=== PATIENT | male | born 1955 | race Caucasian/White ===

== ENCOUNTER 2024-01-22 23:33 | Emergency (ER) | payer MEDICARE, OTHER ==
[2024-01-23 00:04] LABS: BASOPHILS % (AUTO) 0.3 %; EOSINOPHILS # (AUTO) 0.1 10^3/uL (0.0-0.7); EOSINOPHILS % (AUTO) 0.8 %; HCT - HEMATOCRIT 45.1 % (42.0-52.0); HGB - HEMOGLOBIN 15.1 g/dL (14.0-18.0); LYMPHOCYTES # (AUTO) 1.9 10^3/uL (1.5-3.5); LYMPHOCYTES % (AUTO) 14.6 %; MEAN CORPUSCULAR HGB CONC 33.5 g/dL (32.0-36.0); MEAN CORPUSCULAR VOLUME 89.7 fL (80.0-94.0); MEAN PLATELET VOLUME 9.9 fL (7.4-11.4); MONOCYTES # (AUTO) 0.8 10^3/uL (0.0-1.0); MONOCYTES % (AUTO) 6.5 %; NEUTROPHILS # (AUTO) 9.8 10^3/uL (1.5-6.6); NEUTROPHILS % (AUTO) 77.5 %; PLT - PLATELET COUNT 247 10^3/uL (130-450); RED BLOOD COUNT 5.03 10^6/uL (4.70-6.10); RED CELL DISTRIBUTION WIDTH 12.7 % (12.0-15.0); WHITE BLOOD COUNT 12.7 x10^3/uL (4.8-10.8)
[2024-01-23 00:08] LABS: BILIRUBIN,URINE NEGATIVE (NEGATIVE); GLUCOSE, URINE (UA) NEGATIVE (NEGATIVE); KETONES,URINE (UA) TRACE mg/dL (NEGATIVE); LEUKOCYTE ESTERASE, URINE NEGATIVE (NEGATIVE); NITRITE,URINE NEGATIVE (NEGATIVE); OCCULT BLOOD,URINE MODERATE (NEGATIVE); PROTEIN,URINE NEGATIVE (NEGATIVE); UROBILINOGEN,URINE 0.2 (NORMAL) E.U./dL (NORMAL)
[2024-01-23 00:10] LABS: CLARITY,URINE CLEAR (CLEAR)
[2024-01-23 00:14] LABS: ALBUMIN 4.5 g/dL (3.2-5.5); ALBUMIN/GLOBULIN RATIO 1.7 (1.0-2.2); BILIRUBIN,TOTAL 0.7 mg/dL (0.2-1.0); CALCIUM 9.6 mg/dL (8.5-10.3); CREATININE 1.3 mg/dL (0.6-1.3); POTASSIUM 4.3 mmol/L (3.5-4.5); TOTAL PROTEIN 7.2 g/dL (6.4-8.9)
[2024-01-23 00:15] LABS: BACTERIA,URINE Rare /HPF (None Seen); MUCUS,URINE Few Strands; RBC,URINE TNTC /HPF (0-5); SQUAMOUS EPITHELIAL CELL,UR RARE Squamous (<= Few); WBC,URINE 0-3 /HPF (0-3)
--- NOTE | 2024-01-23 00:25 | ED Physician Documentation ---
PD HPI ABD PAIN - Stated complaint Stated Complaint: L SIDE ABD/BACK PX - Chief complaint Chief Complaint: Abd Pain - History obtained from History obtained from: Patient - Additional information Additional information: HPI from patient. Patient complains of left lower quadrant pain that radiates to his left flank. Onset approximately 5 PM while at home at rest. The pain has been waxing waning since the onset without inciting event nor exacerbating factors. Patient took Tylenol earlier this evening with significant improvement only to have the pain reoccurred at approximately 10 PM tonight and thus he presents the emergency department for evaluation. He has never had this type of pain before. He denies nausea, vomiting. Denies gross hematuria, denies dysuria. Review of Systems Constitutional: denies: Fever, Chills, Sweats Cardiac: reports: Reviewed and negative Respiratory: reports: Reviewed and negative GI: reports: Abdominal Pain. denies: Nausea, Vomiting : denies: Dysuria, Hematuria Musculoskeletal: denies: Back pain PD PAST MEDICAL HISTORY - Past Medical History Past Medical History: Yes - Past Surgical History Past Surgical History: Yes - Present Medications Home Medications: Ambulatory Orders Medication Instructions Recorded Confirmed HYDROcod/ACETAM 5/325 [Swoope 5/325] 1 - 2 tablet PO Q6H PRN #14 tablet 01/23/24 Ondansetron Odt [Zofran Odt] 4 mg TL Q6H PRN #14 tablet 01/23/24 Tamsulosin [Flomax] 0.4 mg PO DAILY #6 cap 01/23/24 - Allergies Allergies/Adverse Reactions: Allergies Allergy/AdvReac Type Severity Reaction Status Date / Time Sulfa (Sulfonamide Allergy Rash Verified 01/22/24 23:43 Antibiotics) - Social History Does the pt smoke?: No Smoking Status: Never smoker PD ED PE NORMAL - Vitals Vital signs reviewed: Yes - General General: Alert and oriented X 3, No acute distress, Well developed/nourished - Cardiac Cardiac: RRR, No murmur - Respiratory Respiratory: No respiratory distress, Clear bilaterally - Abdomen Abdomen: Soft, Non tender - Back Back: No CVA TTP Results - Vitals Vitals: Vital Signs - 24 hr 01/22/24 01/23/24 23:40 02:38 Temperature 36.5 C 36 C L Heart Rate 61 64 Respiratory 18 16 Rate Blood Pressure 135/73 H 131/82 H O2 Saturation 100 99 Oxygen O2 Source Room air - Labs Labs: Laboratory Tests 01/22/24 01/22/24 01/23/24 23:54 23:54 00:05 WBC 12.7 H RBC 5.03 Hgb 15.1 Hct 45.1 MCV 89.7 MCH 30.0 MCHC 33.5 RDW 12.7 Plt Count 247 MPV 9.9 Neut # (Auto) 9.8 H Lymph # (Auto) 1.9 Quay # (Auto) 0.8 Eos # (Auto) 0.1 Baso # (Auto) 0.0 Absolute Nucleated RBC 0.00 Nucleated RBC % 0.0 Sodium 137 Potassium 4.3 Chloride 103 Carbon Dioxide 26 Anion Gap 8.0 BUN 17 Creatinine 1.3 Estimated GFR (MDRD) 55 L Glucose 112 H Calcium 9.6 Total Bilirubin 0.7 AST 25 ALT 19 Alkaline Phosphatase 48 Total Protein 7.2 Albumin 4.5 Globulin 2.7 Albumin/Globulin Ratio 1.7 Lipase 38 Urine Color YELLOW Urine Clarity CLEAR Urine pH 6.0 Ur Specific Reading >=1.030 H Urine Protein NEGATIVE Urine Glucose (UA) NEGATIVE Urine Ketones TRACE Urine Occult Blood MODERATE H Urine Nitrite NEGATIVE Urine Bilirubin NEGATIVE Urine Urobilinogen 0.2 (NORMAL) Ur Leukocyte Esterase NEGATIVE Urine RBC TNTC H Urine WBC 0-3 Ur Squamous Epith Cells RARE Squamous Urine Bacteria Rare Urine Mucus Few Strands Ur Microscopic Review INDICATED Urine Culture Comments NOT INDICATED - Rads (name of study) CT A/P Relevant Findings:: Prelim report reviewed, See rad report PD Medical Decision Making - ED course Complexity details: reviewed results, re-evaluated patient, considered differential, d/w patient ED course: Mild leukocytosis (12.7 WBC) on otherwise unremarkable CBC. ER abdominal panel is normal with noncontributory exceptions of GFR 55, glucose 112. Urinalysis has TNTC RBC/hpf but no white blood cells, nitrites, and only rare bacteria. CT A/P reveals moderate left-sided hydronephrosis and perinephric stranding due to obstructing 3mm calculus in UVJ. While the radiologist interpretation of this study includes findings that raise suspicion for concomitant infection (infectious uropathy, cystitis), the results of the urinalysis do not support/evidence infection. Patient declines analgesia both on initial evaluation as well as reevaluation prior to discharge. Results discussed with patient along with diagnosis and prognosis. He is given 0.4 mg tamsulosin p.o., and provided take-Home packs of ondansetron and Vicodin. Return precautions reviewed. I have also electronically submitted prescriptions for tamsulosin, Vicodin, and ondansetron to patient's pharmacy of choice. Departure - Departure Disposition: Home, Self Care Clinical Impression: Renal colic Condition: Good Instructions: ED Stone Renal W Colic Prescriptions: Tamsulosin [Flomax] 0.4 mg PO DAILY #6 cap HYDROcod/ACETAM 5/325 [Swoope 5/325] 1 - 2 tablet PO Q6H PRN #14 tablet PRN Reason: Pain Ondansetron Odt [Zofran Odt] 4 mg TL Q6H PRN #14 tablet PRN Reason: Nausea / Vomiting Comments: The CT scan shows a left-sided kidney stone lodged in your ureter. The ureter is the conduit from the kidney to the bladder. When the kidney stone tries to pass from the kidney into the bladder, it often will get stuck in the ureter and this is what causes the pain of a kidney stone. Fortunately, the CT scan shows your kidney stone is right at the verge of passing into the bladder. Once it has passed into the bladder, the pain should resolve and the stone will painlessly exit the bladder the next time you urinate. I have electronically submitted prescriptions for tamsulosin, Vicodin (opiate/narcotic pain medication), and ondansetron (antinausea medication) to the [facility] in [place]. The tamsulosin is to be taken once per day for 1 week; tamsulosin slightly dilates both of the ureters, increasing the likelihood the stone will pass without needing a procedure and slightly decreasing the time it takes to pass the stone. I am prescribing a short course of narcotic pain medication for you. These are potentially dangerous and addictive medications that should be used carefully. These medications may constipate you. Take an tqzq-laa-bdkblce stool softener (docusate) twice daily with plenty of water while taking these medications. If you go 24 hours without a bowel movement, take chqm-zin-keenbta miralax, per package instructions. Do not drink or drive while taking these medications. If you received narcotic or sedating medications while in the emergency department, do not drive for 24 hours. Store this medication in a safe, secure place and out of reach of children. It is a violation of federal law to give or sell this medication to another person or to use in a manner other than prescribed. The ED will not refill narcotic prescriptions, including prescriptions lost or stolen. To dispose of unwanted medications: 1. [facility] at [address] in [place] has a medication drop box. They accept prescription medications (in pill form) Sunday through Sunday 9:00 a.m. to 5:00 p.m. 2. The [facility] [place] [employer] accepts prescription medications (in pill form only) for disposal year round. Call for more information. 3. Contact the [facility] for the next [facility] sponsored prescription drug collection event. , [phone], or [phone]; Discharge Date/Time: 01/23/24 02:38
--- NOTE | 2024-01-23 02:29 | CT Report ---
PROCEDURE: Abdomen/Pelvis WO INDICATIONS: left flank pain TECHNIQUE: A CT scan of the abdomen and pelvis was performed without the use of intravenous contrast. Images we re recorded and evaluated at appropriate window settings. Reformats: coronal and sagittal. For radiat ion dose reduction, the following was used: automated exposure control, adjustment of mA and/or kV ac cording to patient size. COMPARISON: None. FINDINGS: Image quality: Diagnostic. Lower chest: Bibasilar atelectasis. Small hiatal hernia. Liver: No contour-deforming mass. Gallbladder: No radiopaque stones or wall thickening. Biliary tree: No intrahepatic or extrahepatic dilation, accounting for age. Spleen: No splenomegaly. Pancreas: No pancreatic ductal dilation. Adrenals: No adrenal nodule. Kidneys and ureters: Right kidney and ureter is unremarkable without obstructing stone. No right hydr onephrosis or hydroureter. There is a moderal left hydroureteronephrosis secondary to a 3mm obstructing stone at the left ureter ovesicular junction. There is also moderate left perinephric and periureteral stranding. Stomach, bowel and peritoneum: No gastric or small bowel dilation. No abnormal wall thickening. No pa thologic free fluid. Lymph nodes: No central or retroperitoneal adenopathy. Vessels: No infrarenal aortic aneurysm. Reproductive organs: Unremarkable. Bladder: Bladder wall thickness is mildly thickened accounting for degree of distention. No significa nt stranding. No calcified bladder stones. Pelvic lymph nodes: No adenopathy by size criteria. Bones: No aggressive osseous abnormality. Other: No significant ventral or inguinal hernia. IMPRESSION: Obstructing distal left ureteral stone at the left ureterovesicular junction with associated moderate left hydroureteronephrosis and perinephric/periureteral stranding. Recommend clinical and laboratory correlation for possible infectious uropathy. Additionally, there is mild urinary bladder wall thickening slightly more pronounced than expected fo r degree of distention and may represent concurrent cystitis. Other chronic findings as above. Reviewed by: Anup Bloom MD on 01/23/2024 2:27 AM PDT Approved by: Anup Bloom MD on 01/23/2024 2:27 AM PDT Station ID: [id number]
[2024-01-23] MEDS: HYDROcod/ACET 5/325 Prepack 4 PO STA (02:36)
[2024-01-23] MEDS: ONDANSETRON ODT 4 MG Prepack 2 TL STA (02:36)
[2024-01-23] MEDS: TAMSULOSIN 0.4 MG CAPSULE PO STA (02:36)
[2024-01-23 02:41] VITALS: BP 131/82; O2SAT 99
== END 2024-01-23 02:38 | disposition home or self-care (01) ==
LOC: ED 23:33
DX: N13.2 Hydronephrosis with renal and ureteral calculous obstruction (principal)
CPT/HCPCS: 36415; 74176; 80053; 81001; 83690; 85025; 99284; A9270; 81003; 87086